=== PATIENT | male | born 1985 | race Hispanic/Latino ===

== ENCOUNTER 2025-03-20 07:53 | Emergency (ER) | payer OTHER ==
[~2025-03-20] VITALS: Ht 172.7 cm; Wt 108.9 kg
[2025-03-20 07:58] VITALS: BP 145/87; PULSE 112; RESP 18; TEMP 98.8
--- NOTE | 2025-03-20 08:03 | NUR ---
PT JUST NOW BEING PLACED IN HALLWAY B1 BY [facility]. PT ALSO CHANGED INTO PAPER SCRUBS. ASHA 1:1 SITTER WAS SENT BY [employer]. PLEASE ALSO REFER TO 1:1 SITTER OBSERVATION RECORD.
[2025-03-20 08:41] LABS: BASOPHILS # (AUTO) 0.08 K/uL (0.00-0.20); BASOPHILS % (AUTO) 1.1 % (0.0-5.0); EOSINOPHILS # (AUTO) 0.07 K/uL (0.00-0.70); HEMATOCRIT 41.7 % (42-54); IMMATURE GRANULOCYTE ABSOLUTE 0.07 K/uL (0-1); LYMPHOCYTES # (AUTO) 1.8 K/uL (1.0-4.8); LYMPHOCYTES % (AUTO) 26.1 % (21.0-51.0); MEAN CORPUSCULAR HEMOGLOBIN 29.1 pg (27.0-33.0); MEAN CORPUSCULAR HGB CONC 35.3 g/dL (32.0-36.0); MEAN CORPUSCULAR VOLUME 82.4 fL (79-99); MONOCYTES # (AUTO) 0.6 K/uL (0.1-1.0); MONOCYTES % (AUTO) 8.4 % (3.0-13.0); NEUTROPHILS # (AUTO) 4.4 K/uL (1.8-7.7); NEUTROPHILS % (AUTO) 62.4 % (40.0-77.0); PLATELET COUNT (AUTO) 192 K/uL (130-400); RED BLOOD CELL COUNT(AUTO) 5.06 MIL/uL (4.50-6.20); RED CELL DISTRIBUTION WIDTH 13.2 % (11.0-15.5)
[2025-03-20 09:00] LABS: CARBON DIOXIDE 27 mmol/L (21-32); CHLORIDE 100 mmol/L (101-111); CREATININE 1.3 mg/dL (0.5-1.3); GLOMERULAR FILTR. RATE CALC 72 mL/min (>90); GLUCOSE,RANDOM 297 mg/dL (70-105); POTASSIUM 3.8 mmol/L (3.5-5.1); SODIUM SERUM 137 mmol/L (136-145); UREA NITROGEN, BLOOD 9 mg/dL (7-18)
[2025-03-20] MEDS: 0.9%NACL 1000ML 1,000 ML IV ONE ×2 (09:03→10:31)
--- NOTE | 2025-03-20 09:03 | NUR ---
PT WAS UNABLE TO VOID UPON ARRIVAL AND IS CURRENTLY RECEIVING IVF'S.
[2025-03-20 09:04] LABS: ALCOHOL, BLOOD 191 mg/dL (0-10); CREATINE KINASE, TOTAL 342 U/L (21-232)
[2025-03-20 09:06] LABS: ACETAMINOPHEN < 1 mcg/mL (10-29); SALICYLATE < 2.8 mg/dL (2.8-20.0)
--- NOTE | 2025-03-20 09:42 | NUR ---
PT WAS ABLE TO GET OOB AND AMBULATE TO BR TO VOID AND COLLECT A URINE SAMPLE
[2025-03-20 09:50] LABS: APPEARANCE,URINE CLEAR (CLEAR); BILIRUBIN,URINE NEGATIVE (NEGATIVE); COLOR,URINE LIGHT-YELLOW (YELLOW); GLUCOSE, URINE (UA) >=1000 mg/dL (NEGATIVE); KETONES,URINE NEGATIVE (NEGATIVE); LEUKOCYTE ESTERASE ,URINE NEGATIVE Leu/uL (NEGATIVE); NITRATE,URINE NEGATIVE (NEGATIVE); OCCULT BLOOD,URINE NEGATIVE (NEGATIVE); PH,URINE 5.5 (5.0-8.0); UROBILINOGEN,URINE 0.2 mg/dL (0.2-1.0)
[2025-03-20 09:51] LABS: ADD UA MICROSCOPIC YES
[2025-03-20 09:52] LABS: PROTEIN,URINE TRACE mg/dL (NEGATIVE)
[2025-03-20 09:53] LABS: BACTERIA,URINE RARE /HPF (None Seen); MUCUS,URINE RARE LPF (None Seen); RBC,URINE 0-1 /HPF (0-1); WBC,URINE 0-1 /HPF (0-1)
[2025-03-20 09:57] LABS: AMPHET/METH SCREEN,URINE NEGATIVE (NEGATIVE); BARBITURATE SCREEN, URINE NEGATIVE (NEGATIVE); BENZODIAZEPINES SCREEN,URINE NEGATIVE (NEGATIVE); CANNABINOID SCREEN,URINE NEGATIVE (NEGATIVE); COCAINE SCREEN,URINE NEGATIVE (NEGATIVE); OPIATE SCREEN,URINE NEGATIVE (NEGATIVE); PHENCYCLIDINE SCREEN,URINE NEGATIVE (NEGATIVE)
--- NOTE | 2025-03-20 10:16 | ERN ---
General Chief Complaint: Suicidal Ideation Stated Complaint: SI Time Seen by MD: 07:56 Source: patient History of Present Illness Initial Comments 39-year-old male coming in for medical clearance. Patient was at mental health facility and was sent over due to alcohol intoxication and having suicidal ideation. Allergies: Uncoded Allergies: NKA (Allergy, Unknown, 03/20/25) Past Medical History Past Medical History: Diabetes-Type II, Hypertension Medical History Other: ETOH LAST NIGHT AFTER 9 MONTHS OF SOBRIETY Past Surgical History: Unknown ROS Dictation CONSTITUTIONAL: No chills, no fever, weakness, no diaphoresis, no malaise. HEAD/FACE: No signs of trauma. EENT: No eye pain, no blurred vision, no tearing, no double vision, no ear pain, no ear discharge, no nose pain, no nasal congestion, no throat pain, no throat swelling, no mouth pain. RESPIRATORY: No cough, no orthopnea, no SOB, no stridor, no wheezing. CARDIOVASCULAR: No chest pain, no edema, no palpitations, no syncope. GASTROINTESTINAL/ABDOMINAL: No abdominal pain, no constipation, no diarrhea, no nausea, no vomiting. GENITOURINARY: No abnormal discharge, no dysuria, no frequent urination, no hematuria. No complaints of pain in the genitals. MUSCULOSKELETAL: No back pain, no gout, no joint pain, no joint swelling, no muscle pain, no muscle stiffness, no neck pain. INTEGUMENTARY: No change in color, no change in hair/nails, no dryness, no lesion, no lumps, no rash. NEUROLOGICAL/PSYCH: No anxiety, not depressed, no emotional problem, no headache, no numbness, no pre-existing deficit, no history of seizures, no tremors, no weakness. HEMATOLOGIC/LYMPHATIC: Not anemic, no history of blood clots, no apparent bleeding, no bruising, glands not swollen. All Systems Negative, Except as Noted. Physical Exam Physical Exam Dictation VITAL SIGNS: Reviewed. GENERAL APPEARANCE: Alert, oriented x3, no acute distress, obese. HEAD AND FACE: Non-traumatic. EYES: PERRL, pink conjunctivas, eyelid no trauma, anterior chamber clear. EARS: Pinnas intact and no signs of trauma or erythema. Ear canals clear and no discharge. TMs no erythema. NOSE: No discharge, no bleeding. OROPHARYNX: Mouth normal, teeth no caries, tongue pink. Pharynx clear, no erythema. Tonsils no exudates, no abscesses noted. Mucous membrane moist. NECK: Supple, non-tender, no thyromegaly, no masses, no JVD, no bruits. BREAST: Deferred. CHEST: No tenderness, no crepitus, no paradoxical movement, no retractions. LUNGS: Clear, well-ventilated, symmetric, no rales, no wheezing, no rhonchi, no stridor, good breath sounds bilaterally. HEART: Regular rate, regular rhythm, no murmur, no gallops. VASCULAR: No peripheral edema. ABDOMEN: Soft, positive bowel sounds, nondistended, no guarding, nontender, no rebound, no masses no hepatomegaly, no splenomegaly, no Silveira's sign, no hernias. RECTAL: Deferred. GENITAL: Deferred. NEUROLOGICAL: Normal speech, gross motor function intact, gross sensory function intact. MUSCULOSKELETAL: Neck nontender, full range of motion, back nontender, full range of motion. EXTREMITIES: Nontender, full range of motion. SKIN: Color pink, dry, no turgor, no rash, no lacerations, no abrasions, no contusions. LYMPHATICS: Deferred. Results Laboratory and Microbiology Lab and Micro Result Laboratory Tests Test 03/20/25 08:27 03/20/25 09:28 03/20/25 10:41 03/20/25 12:05 White Blood Count 7.0 K/uL (4.8-10.8) Red Blood Count 5.06 MIL/uL (4.50-6.20) Hemoglobin 14.7 g/dL (14.0-18.0) Hematocrit 41.7 % (42-54) L Mean Corpuscular Volume 82.4 fL (79-99) Mean Corpuscular Hemoglobin 29.1 pg (27.0-33.0) Mean Corpuscular Hemoglobin Concent 35.3 g/dL (32.0-36.0) Red Cell Distribution Width 13.2 % (11.0-15.5) Platelet Count 192 K/uL (130-400) Mean Platelet Volume 10.2 fL (7.5-10.5) Immature Granulocyte % (Auto) 1.0 % (0-1) Neutrophils (%) (Auto) 62.4 % (40.0-77.0) Lymphocytes (%) (Auto) 26.1 % (21.0-51.0) Monocytes (%) (Auto) 8.4 % (3.0-13.0) Eosinophils (%) (Auto) 1.0 % (0.0-8.0) Basophils (%) (Auto) 1.1 % (0.0-5.0) Neutrophils # (Auto) 4.4 K/uL (1.8-7.7) Lymphocytes # (Auto) 1.8 K/uL (1.0-4.8) Monocytes # (Auto) 0.6 K/uL (0.1-1.0) Eosinophils # (Auto) 0.07 K/uL (0.00-0.70) Basophils # (Auto) 0.08 K/uL (0.00-0.20) Absolute Immature Granulocyte (auto 0.07 K/uL (0-1) Nucleated Red Blood Cells 0.0 % (0.0-0.19) Sodium Level 137 mmol/L (136-145) Potassium Level 3.8 mmol/L (3.5-5.1) Chloride Level 100 mmol/L (101-111) L Carbon Dioxide Level 27 mmol/L (21-32) Blood Urea Nitrogen 9 mg/dL (7-18) Creatinine 1.3 mg/dL (0.5-1.3) Glomerular Filtration Rate Calc 72 mL/min (>90) Random Glucose 297 mg/dL (70-105) H Total Calcium 8.6 mg/dL (8.5-10.1) Total Creatine Kinase 342 U/L (21-232) H Salicylates Level < 2.8 mg/dL (2.8-20.0) L Acetaminophen Level < 1 mcg/mL (10-29) L Serum Alcohol 191 mg/dL (0-10) H 152 mg/dL (0-10) H Urine Color LIGHT-YELLOW (YELLOW) Urine Appearance CLEAR (CLEAR) Urine pH 5.5 (5.0-8.0) Urine Specific [place] 1.023 (1.001-1.031) Urine Protein TRACE mg/dL (NEGATIVE) H Urine Glucose (UA) >=1000 mg/dL (NEGATIVE) H Urine Ketones NEGATIVE mg/dL (NEGATIVE) Urine Occult Blood NEGATIVE (NEGATIVE) Urine Nitrate NEGATIVE (NEGATIVE) Urine Bilirubin NEGATIVE mg/dL (NEGATIVE) Urine Urobilinogen 0.2 mg/dL (0.2-1.0) Urine Leukocyte Esterase NEGATIVE Gibran/uL Urine RBC 0-1 /HPF (0-1) Urine WBC 0-1 /HPF (0-1) Urine Bacteria RARE /HPF (None Seen) Urine Opiates Screen NEGATIVE (NEGATIVE) Urine Barbiturates Screen NEGATIVE (NEGATIVE) Urine Phencyclidine Screen NEGATIVE (NEGATIVE) Urine Amphetamines Screen NEGATIVE (NEGATIVE) Urine Benzodiazepines Screen NEGATIVE (NEGATIVE) Urine Cocaine Screen NEGATIVE (NEGATIVE) Urine Marijuana (THC) Screen NEGATIVE (NEGATIVE) Whole Blood Glucose 203 MG/DL (70-110) H MDM MDM: Differential diagnosis: Suicidal ideation, alcohol intoxication, psychiatric illness, Rationale: Tests considered and ordered secondary to shared decision making include: labs, ECG and radiology Previous outside records reviewed: Old ER visits. Risk of complication and/or morbidity or mortality of patient management: None Medications-Per medication reconciliation Need for hospitalization: Patient does meet criteria for hospitalization. Need for emergency major/minor surgery: No There are no social concerns with this patient. Prescription drug management Prescriptions will include symptomatic care Patient's prior external medical records from other ER visits were reviewed by me as indicated. Prior testing and results from previous visits were reviewed. Prior tests were taken into account with medical decision making and resource utilization, independent historian/historians were used to obtain complete medical history. I independently interpreted the test that were performed, results were reviewed by me and considered findings on radiology if ordered. Medical management and examination interpretation discussions were had by me with other qualified healthcare professionals as indicated for the patient's care. Patient is cleared for psychiatric facility labs were relayed to them they states that he is acceptable to be transferred back as patient has already been screened. ED Course Orders Procedure Category Date Status Time Cbc With Differential LAB 03/20/25 Complete 08:01 Alcohol, Blood LAB 03/20/25 Complete 08:01 Salicylate LAB 03/20/25 Complete 08:01 Acetaminophen LAB 03/20/25 Complete 08:01 Urinalysis Profile LAB 03/20/25 Complete 08:01 0.9%Nacl 1000ml (Ns PHA 03/20/25 Complete 1000ml) 08:30 Creatine Kinase, Total LAB 03/20/25 Complete 08:01 Basic Metabolic Panel LAB 03/20/25 Complete 08:01 Drug Screen Urine LAB 03/20/25 Complete 08:01 0.9%Nacl 1000ml (Ns PHA 03/20/25 Complete 1000ml) 10:30 Alcohol, Blood LAB 03/20/25 Complete 10:04 Current Medications Medications (Trade) Dose Ordered Sig/Tahir Route PRN Reason Start Time Stop Time Status Last Admin Dose Admin Sodium Chloride 1,000 ml @ 0 mls/hr ONCE ONCE IV 03/20/25 10:30 03/20/25 10:31 DC 03/20/25 10:31 Sodium Chloride 1,000 ml @ 125 mls/hr ONCE ONCE IV 03/20/25 08:30 03/20/25 10:04 DC 03/20/25 09:03 Vital Signs Date Time Temp Pulse Resp B/P (MAP) Pulse Ox O2 Delivery O2 Flow Rate FiO2 03/20/25 07:58 98.8 112 18 145/87 96 Room Air 0 DX & DISP Disposition: Transfer Departure Impression: Primary Impression: Psychiatric disorder Additional Impression: Alcohol abuse Condition: Stable Referrals: SELF,REFERRAL (PCP) Time of Disposition: 12:24 EBEN MONROY MD Mar 20, 2025 10:16
--- NOTE | 2025-03-20 11:48 | NUR ---
MARCUS BEHAVIOURAL: I CALLED AND SPOKE TO [facility] AND GAVE PT UPDATE. SHE SAID WHENEVER WE ARE ABLE TO GO AHEAD AND SEND PT BACK NOW THAT HIS ETOH LEVEL HAS COME DOWN. SHE ALSO STATED A RETURN MOT WAS NOT NECESSARY D/T THAT HE HAD BEEN ACCEPTED AND SCREENED PRIOR TO COMING TO ED. SHE WOULD SEND A TRANSPORT VAN IN ABOUT 45MINS
--- NOTE | 2025-03-20 11:55 | NUR ---
PT AND REMI PROVIDED W/A NOON MEAL TRAY
--- NOTE | 2025-03-20 12:38 | NUR ---
JUST PENDING RIDE TO ARRIVE FROM [facility] TO [facility] AND TRANSPORT PT/ASHA AL BACK TO THEIR FACILITY UPON DISCHARGE
--- NOTE | 2025-03-20 12:47 | NUR ---
REPORT WAS CALLED TO SHAR JUST NOW. INFORMED MEDICAL CLEARANCE, TRANSFER SUMMARY AND D/C PACKET PROVIDED FOR PT AND GIVEN TO ASHA THEIR TECH. PT HAS BEEN CALM AND COOPERATIVE.
== END 2025-03-20 12:45 | disposition home or self-care (01) ==
LOC: EDH 07:53
DX: F99 Mental disorder, not otherwise specified (principal); F10.129 Alcohol abuse with intoxication, unspecified; E11.9 Type 2 diabetes mellitus without complications; I10 Essential (primary) hypertension; Y90.6 Blood alcohol level of 120-199 mg/100 ml
CPT/HCPCS: 99284; 82550; 80048; 80305; 85025; 82948; 36415; 81001; G0481